=== PATIENT | female | born 1995 | race Caucasian/White ===

== ENCOUNTER → 2020-02-18 | Outpatient (CLI) | payer OTHER ==
--- NOTE | 2020-02-18 11:50 | RADIOLOGY REPORT (SQ) ---
EXAM DESCRIPTION: U/S THYROID/SFT TISS HD NECK IMAGES COMPLETED DATE/TIME: 02/18/2020 11:41 am REASON FOR STUDY: R22.1 LOCALIZED SWELLING, MASS AND LUMP, R22.1 LOCALIZED SWELLING, MASS AND LUMP, NECK COMPARISON: None. TECHNIQUE: Dynamic and static jaquez-scale images acquired of the thyroid gland. Selected additional c olor/power Doppler images recorded. All images stored to PACS. LIMITATIONS: None. FINDINGS: RIGHT LOBE: Normal size. Slightly heterogenous echotexture. No cystic or solid masses. LEFT LOBE: Normal size. Slightly heterogenous echotexture. No cystic or solid masses. ISTHMUS: Normal size. Slightly heterogenous echotexture. No cystic or solid masses. OTHER: Multiple hypoechoic masses in the lateral neck, the largest measuring 2.7 cm. IMPRESSION: 1. LEFT CERVICAL ADENOPATHY. ABNORMAL SONOGRAPHIC APPEARANCE OF THE LYMPH NODES. MAY BE DUE TO INFE CTION, INFLAMMATION, OR MALIGNANT INVOLVEMENT. 2. MILDLY HETEROGENOUS APPEARANCE OF THE THYROID. NO FOCAL THYROID NODULES. TECHNICAL DOCUMENTATION: JOB ID: [id number] 2010 [employer]- All Rights Reserved Reading location - IP/workstation name: [email or web address]
== END ==
LOC: RAD 11:20
PROVIDERS: ATTEND Family Medicine
DX: R59.0 Localized enlarged lymph nodes (principal)
CPT/HCPCS: 76536